=== PATIENT | female | born 1985 | race Two or more races ===

== ENCOUNTER → 2021-12-07 | Outpatient (CLI) | payer BC ==
--- NOTE | 2021-12-07 13:36 | RAD ---
PQRS Compliance Statement: One or more of the following individualized dose reduction techniques were utilized for this examinat ion: 1. Automated exposure control 2. Adjustment of the mA and/or kV according to patient size 3. Use of iterative reconstruction technique CT ABDOMEN+PELVIS WO Clinical Indication: Reason: ABDOMEN PAIN AND BLOATING / Comparison: CT abdomen and pelvis without contrast May 02, 2006. Technique: Helical CT imaging of the abdomen and pelvis is performed without IV or oral contrast. Findings: Evaluation of solid organs and bowel is limited without oral and IV contrast, decreasing sensitivity for detection of pathology. Lung bases are clear. Cardiac size normal. The liver, gallbladder, spleen, pancreas, adrenal glands, abdominal aorta, and kidneys are normal. The stomach is unremarkable. There are several subcentimeter mesenteric lymph nodes. There is no beth opathy. There is a small fat-containing umbilical hernia. There is no dilated small bowel. No colon w all thickening is seen. The appendix is normal. The uterus is anteverted. Left ovary is unremarkable. The right ovary is not well seen. The urinary b ladder is normal. There is no pelvic free fluid. There is no acute bone abnormality. IMPRESSION: No acute abdominal or pelvic abnormality. Electronically signed by: Cem Mahmood MD (12/07/2021 1:34 PM) [id number]
== END ==
LOC: CT 11:22
PROVIDERS: ATTEND Nurse Practitioner Adult Health
DX: K42.9 Umbilical hernia without obstruction or gangrene (principal); R59.0 Localized enlarged lymph nodes
CPT/HCPCS: 74176